=== PATIENT | female | born 1955 | race Caucasian/White ===

== ENCOUNTER 2016-05-18 16:18 | Emergency (ER) | payer BC ==
[~2016-05-18] VITALS: Ht 162.6 cm; Wt 77.0 kg
[~2016-05-18 16:18] MED LIST: ATOR10TA65 PO; CARI350T PO; CYCL-319 PO; IBUP-1542 PO; OXYC-209 PO
[2016-05-18 16:21] VITALS: Ht 162.6 cm; Wt 77.0 kg
== END 2016-05-18 19:00 | disposition left against medical advice (07) ==
LOC: E/R 16:18 → FTE 19:00
DX: Z53.21 Procedure and treatment not carried out due to patient leaving prior to being seen by health care provider (principal)